=== PATIENT | female | born 1980 | race Caucasian/White ===

== ENCOUNTER 2017-10-03 09:40 | Emergency (ER) | payer OTHER ==
[2017-10-03] MEDS ORDERED: Meclizine TAB* 12.5 MG PO ONE (10:27)
[2017-10-03] MEDS ORDERED: Meclizine TAB* 12.5 MG ONE (10:36)
--- NOTE | 2017-10-03 10:47 | ED ---
Dizziness - HPI Summary HPI Summary: Pt here w/ multiple sx starting yesterday. Around 16:00 got up from desk at work and felt lightheaded, "vision was off a little". Drove home and head felt "odd". Denies STEVENS but had an uncomfortable sensation in head and dull STEVENS behind eyes B/L (has this posterior ocular sx with migraines in the past). Called to come home early to help with kids as she felt "off". Reports she was okay when she was still but room would spin when she moved. Admits she missed lunch and had not had much for breakfast this day (h/o hypoglycemia - see below) . Ate toast and eggs around 19:00 and was able to sleep comfortably. When she woke at 21:30, she reports dizziness/spins resolved. This morning, planned to go to work as she felt better but she reports mild dizziness again w/ movement - decided to get checked at medical facility. Went to [facility] and was sent here for further evaluation. Denies recent head injury, traumatic injury in general (ie. falling, jarring, etc). No h/o head injuries/concussions. Admits she had sx of a migraine (starts as dull pain behind eyes) earlier this week - took an aleve and sx resolved, no STEVENS emerged. She also admits she's felt "run down" this week but no focal sx to report (ie. no URI sx, etc). Took oregano oil as a preventative to possible illness - no change in sx w/ this. Sleeps well and about 8 hours a night. When asked about stress, she reports it' s the same over past couple of years with 2 toddlers however feels stress is worse at home w/ kids getting older, one into a 2 y.o. phase (ie. terrible two's), etc. 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 ETOH consumption consists of couple of drinks on weekend only - none consumed in days prior to episodes. No tobacco use. 1 cup coffee in AM only (no excessive caffeine). PMedhx: Migraines - gets one every couple of years -last one 2 years ago. Starts w/ dull pain behind eyes then progresses to STEVENS. She was seen by neurologist and had MRI - dx'd w/ intermittent migraines - no preventative meds. Gestational diabetes - this was controlled during with diet and she later developed hypoglycemia. No current issues with this of which she's aware. No known issues recently. Chronic coccyx pain - since delivering son, intermittent pain - no triggers identified. No change in sx recently. LMP - Sep 10 - normal Denies ab pain/pelvic pain/vaginal pain/vaginal irritation or discharge/back, flank pain. - History Of Current Complaint Chief Complaint: EDDizziness Stated Complaint: HEADACHE Time Seen by Provider: 10/03/17 09:52 Hx Obtained From: Patient, Family/Inspecting Machine Adjuster - - Allergies/Home Medications Allergies/Adverse Reactions: Allergies Allergy/AdvReac Type Severity Reaction Status Date / Time No Known Allergies Allergy Verified 10/03/17 09:43 PMH/Surg Hx/FS Hx/Imm Hx Previously Healthy: Yes Endocrine/Hematology History: Reports: Hx Diabetes - gestational diabetes during - followed by episode of hypoglycemia Denies: Hx Anticoagulant Therapy, Hx Blood Disorders, Hx Thyroid Disease, Hx Anemia, Hx Unexplained Bleeding, Autoimmune Disease Cardiovascular History: Denies: Hx Aneurysm, Hx Angina, Hx Congenital Heart Disease, Hx Congestive Heart Failure, Hx Deep Vein Thrombosis, Hx Hypercholesterolemia, Hx Hypotension , Hx Hypertension, Hx Myocardial Infarction, Hx Syncope, Hx Valvular Heart Disease Respiratory History: Denies: Hx Asthma, Hx Chronic Obstructive Pulmonary Disease (COPD), Hx Pulmonary Edema, Hx Seasonal Allergies, Hx Sleep Apnea GI History: Denies: Hx Cirrhosis, Hx Crohn's Disease, Hx Diverticulosis, Hx Gall Bladder Disease, Hx Gastroesophageal Reflux Disease, Hx Gastrointestinal Bleed, Hx Irritable Bowel, Hx Ulcer Musculoskeletal History: Reports: Other Musculoskeletal History - chronic coccyx pain since delivering child 2 years ago Sensory History: Reports: Other Sensory Impairments - visual aura w/ migraines Denies: Hx Cataracts, Hx Contacts or Glasses, Hx Eye Injury, Hx Eye Prosthesis, Hx Glaucoma Opthamlomology History: Denies: Hx Contacts or Glasses Neurological History: Reports: Hx Migraine - every couple of years Denies: Hx CVA, Hx Dementia, Hx Developmental Delay, Hx Nerve Disease, Hx Peripheral Neuropathy, Hx Seizures, Hx Spinal Cord Injury, Hx Transient Ischemic Attacks (TIA) Psychiatric History: Denies: Hx Anxiety, Hx Depression - Immunization History Immunizations Up to Date: Yes Infectious Disease History: No Infectious Disease History: Denies: Hx Human Immunodeficiency Virus (HIV), Traveled Outside the [place] in Last 30 Days - Family History Known Family History: Positive: Other - cancer, mom w/ Lemhi's - pt tested , does not carry gene - Social History Occupation: Employed Full-time - middle school special education teacher Lives: With Family Alcohol Use: Weekly - weekends only Hx Substance Use: No Substance Use Type: Reports: None Hx Tobacco Use: Yes - not currently Smoking Status (MU): Former Smoker Have You Smoked in the Last Year: No Review of Systems Constitutional: Negative Negative: Fever, Chills, Fatigue Eyes: Other - vision is "off" when spins occur Positive: Photophobia - to fluourescent lights only. Negative: Blurred Vision, Diplopia, Drainage, Erythema ENT: Negative Negative: Epistaxis, Dental Pain, Sore Throat, Ear Ache, Nasal Discharge Cardiovascular: Negative Negative: Palpitations, Chest Pain Respiratory: Negative Negative: Shortness Of Breath, Cough Gastrointestinal: Negative Negative: Abdominal Pain, Vomiting, Diarrhea, Nausea Genitourinary: Negative Negative: burning, dysuria, discharge - none today, frequency, flank pain, hematuria, incontinence, pain, urgency Musculoskeletal: Negative Skin: Negative Neurological: Other - as in HPI Positive: Headache - head feels "off" - dull STEVENS behind eyes yesterday as in HPI - none today. Negative: Weakness, Paresthesia, Numbness, Syncope, Slurred Speech Psychological: Normal - stress may be worse but she reports no perceived change in mood All Other Systems Reviewed And Are Negative: Yes Physical Exam Triage Information Reviewed: Yes Vital Signs On Initial Exam: Initial Vitals Temp Pulse Resp BP Pulse Ox 97.9 F 78 15 107/70 100 10/03/17 09:43 10/03/17 09:43 10/03/17 09:43 10/03/17 09:43 10/03/17 09:43 Vital Signs Reviewed: Yes Appearance: Positive: Well-Appearing, No Pain Distress, Thin Skin: Positive: Warm, Dry Head/Face: Positive: Normal Head/Face Inspection - sinuses NTTP, no gross deformity, scalp NTTP. Negative: TMJ Tenderness Eyes: Positive: Normal, EOMI, AMISHA - no photophobia, Conjunctiva Clear. Negative: Conjunctiva Inflammed, Discharge ENT: Positive: Normal ENT inspection, Hearing grossly normal, Pharynx normal, TMs normal, Uvula midline. Negative: Trismus Dental: Negative: Gross Decay/Caries @, Dental Fracture @, Abscess @ Neck: Positive: Supple, Nontender, No Lymphadenopathy Respiratory/Lung Sounds: Positive: Clear to Auscultation, Breath Sounds Present. Negative: Decreased Breath Sounds, Rales, Rhonchi, Subcutaneous Emphysema, Stridor, Tracheal Deviation, Wheezes, Unable to speak in full sentences, Fatigue Cardiovascular: Positive: Normal, RRR, Pulses are Symmetrical in both Upper and Lower Extremities, Other - carotid aa + 2 brisk pulse, no bruits appreciated upon auscultation; no JVD observed, S1, S2. Negative: Murmur, Rub, Leg Edema Left, Leg Edema Right Abdomen Description: Positive: Nontender, No Organomegaly, Soft. Negative: CVA Tenderness (R), CVA Tenderness (L) Bowel Sounds: Positive: Present Pelvic Exam: Positive: other - deferred Musculoskeletal: Positive: Normal, Strength/ROM Intact - 5/5 strength equal in B /L UE's and LE's Neurological: Positive: Sensory/Motor Intact - sensation intact and equal B/L, Alert, Oriented to Person Place, Time, CN Intact II-III, Reflexes Intact, Finger to Nose, Elizabeth-Hawkins [place] Test - Rt - pt reports mild "spins" accompanied by mild horizontal nystagmus - pt becomes, Facial Symmetry, Speech Normal. Negative: Pronator Drift Present Psychiatric: Positive: Normal - tearful w/ + Rt side Elizabeth Hawkins Pyke - otherwise normal Diagnostics - Vital Signs Vital Signs Temp Pulse Resp BP Pulse Ox 10/03/17 09:43 97.9 F 78 15 107/70 100 - Laboratory Result Diagrams: 10/03/17 10:46 10/03/17 10:46 Lab Statement: Any lab studies that have been ordered have been reviewed, and results considered in the medical decision making process. Re-Evaluation - Re-Evaluation First Eval Change: Improved - s/p meclizine Dizzy Course/Dx - Course Course Of Treatment: Pt here w/ "spins" w/ movement preceeded by feeling run down this week and not eating well day of onset of sx (yesterday). She feels better today after eating dinner last night and sleeping well last night. No STEVENS and "spins" are better but still lingering w/ movements so came to get checked out. PE (+) Whitmore Ross James. Labs and vitals are WNL. She has improvement w/ meclizine and feels well to go home. Agrees to f/u w/ PCP and vestibular specialist in next 1-2 days for f/u. Discussed head imaging as an option however risks outweigh benefit at this time so imaging was not performed. Pt and agree w/ plan. Will return to ED if danger s/sx present. - Diagnoses Provider Diagnoses: Vertigo Discharge - Discharge Plan Condition: Stable Disposition: HOME Prescriptions: Meclizine TAB* [Antivert 12.5 TAB*] 25 mg PO TID PRN #15 tab PRN Reason: Dizziness Patient Education Materials: Benign Paroxysmal Positional Vertigo (ED), Dizziness (ED) Forms: *Work Release Referrals: Donnie Bragg DO [Primary Care Provider] - Additional Instructions: You appear to have positional vertigo. This may be alleviated with the Rosalind Maneuver which a vestibular specialist may perform for you (this is a physical therapist trained to treat BPPV). Call to schedule an appointment for treatment today. It is also important that you follow-up with your PCP in the next 1-2 days to reevaluate your symptoms - if still present, you may benefit from head imaging, further cardiac testing, etc. You may take meclizine to reduce symptoms in the meantime and rest, stay hydrated and nourished - avoid stimulants, alcohol, etc. *If you develop return of symptoms, headache, change in vision, neck pain/ stiffness, numbness, tingling, weakness, balance issues, fever, chills, chest pain, shortness of breath, abdominal pain, vomiting, diarrhea, skin changes, bloody nose, abnormal vaginal bleeding, etc return to ED
[2017-10-03 11:50] LABS: Hematocrit 38 % (35-47); Hemoglobin 12.8 g/dl (12.0-16.0); Mean Corpuscular HGB Conc 34 g/dl (31-36); Mean Corpuscular Hemoglobin 30 pg (27-31); Mean Corpuscular Volume 89 fL (80-97); Mean Platelet Volume 8 um3 (7.4-10.4); Red Blood Count 4.31 10^6/ul (4.0-5.4); Red Cell Distribution Width 12 % (10.5-15); White Blood Count 5.2 10^3/ul (3.5-10.8)
[2017-10-03 12:03] LABS: Albumin 4.3 g/dL (3.2-5.2); EGFR African American 143.5 (>60); EGFR Non-African American 111.6 (>60); Globulin 2.7 g/dL (2-4); Magnesium 2.2 mg/dL (1.9-2.7); Potassium 3.8 mmol/L (3.5-5.0); Total Bilirubin 0.8 mg/dL (0.2-1.0)
[2017-10-03 12:15] LABS: TSH (Thyroid Stimulating Horm) 0.65 mcIU/mL (0.34-5.60)
[2017-10-03 13:45] VITALS: BP 108/78
== END 2017-10-03 13:44 | disposition home or self-care (01) ==
LOC: ED 09:40
DX: R42 Dizziness and giddiness (principal); R51 Headache; Z87.891 Personal history of nicotine dependence
CPT/HCPCS: 36415; 80053; 83605; 83735; 84443; 84484; 85025; 85379; 93005; 99282; A9270-GY